=== PATIENT | female | born 1945 | race Caucasian/White ===

== ENCOUNTER 2016-11-23 17:29 | Emergency (ER) | payer MEDICARE, SELFPAY ==
--- NOTE | 2016-11-23 18:03 | EDM.PDOC ---
ED HPI Skin/Rash - General Chief Complaint: Skin Complaint Stated Complaint: FACIAL SWELLING Time Seen by Provider: 11/23/16 18:03 Source: Reports: Patient History Limitations: Reports: No limitations - History of Present Illness INITIAL COMMENTS - FREE TEXT/NARRATIVE: 71-year-old female presents to the ED with her son and [id number]. Son reports that he identified yesterday afternoon that there seemed to be some redness along the right side of his mother's nose that extended just across under her eye. He didn't think much of it and she wasn't complaining of any discomfort or H. This afternoon when they got to see her there is marked erythema and swelling of the entire right inferior aspect of her face under the eye with marked edema of the right lower eyelid and some edema of the upper eyelid. She still reports it doesn't itch or burn or hurt. Examination reveals to be very warm to palpation and it is very red. She's had no cold or sinus congestion. Recently hospitalized in [facility]. Of note she is on Coumadin.patient states she has no teeth and hasn't had for greater than 25 years. She does wear an upper denture plate. 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 (see below) - Related Data Allergies Allergy/AdvReac Type Severity Reaction Status Date / Time Sulfa (Sulfonamide Allergy Swelling Verified 05/04/16 11:45 Antibiotics) Home Meds: Ambulatory Orders Medication Instructions Recorded Confirmed Furosemide [Lasix] 60 mg PO BID 05/04/16 11/23/16 Gabapentin [Neurontin] 100 mg PO BID 05/04/16 11/23/16 Levothyroxine [Synthroid] 88 mcg PO DAILY 05/04/16 11/23/16 Metoprolol Tartrate 50 mg PO BID 05/04/16 11/23/16 Potassium Chloride 20 meq PO BID 05/04/16 11/23/16 Verepamil 180 mg PO DAILY 05/04/16 11/23/16 Warfarin Sodium [Jantoven] 5 mg PO SUTUTHSA 05/04/16 11/23/16 Budesonide/Formoterol Fumarate 2 puff INH BID 11/23/16 11/23/16 [Symbicort 160-4.5 Mcg Inhaler] Ciprofloxacin HCl [Cipro] 500 mg PO BID #20 tablet 11/23/16 Doxycycline [Vibramycin] 100 mg PO Q12HR #21 cap 11/23/16 Warfarin Sodium [Coumadin] 10 mg PO MOWEFR 11/23/16 11/23/16 Past Medical History Cardiovascular History: Reports: Afib (is on Coumadin for this.), Hypertension Respiratory History: Reports: COPD Neurological History: Reports: Neuropathy, peripheral Endocrine/Metabolic History: Reports: Hypothyroidism - Past Surgical History GI Surgical History: Reports: Appendectomy Female Surgical History: Reports: Tubal ligation Social & Family History - Tobacco Use Smoking Status *Q: Former Smoker Years of Tobacco use: 54 Packs/Tins Daily: 2 Used Tobacco, but Quit: Yes Month Tobacco Last Used: 6 months - Caffeine Use Caffeine Use: Reports: Soda Other Caffeine Use: about 6 pac daily - Recreational Drug Use Recreational Drug Use: No - Living Situation & Occupation Living situation: Reports: , with family Occupation: retired ED ROS GENERAL - Review of Systems Review Of Systems: See Below Constitutional: Denies: fever, chills, malaise, weakness, fatigue, decreased appetite, weight loss HEENT: Reports: Eye discharge (minimal.), Glasses. Denies: Eye pain, Hearing loss, Nosebleed, Nose pain, Rhinitis, Sinus problem, Throat pain, Throat swelling, Vertigo Respiratory: Reports: Cough (chronically she has COPD.) Cardiovascular: Reports: Blood pressure problem (controlled with medication), Dyspnea on exertion (chronically). Denies: Chest pain, Lightheadedness Endocrine: Reports: no symptoms GI/Abdominal: Reports: Constipation (occasionally). Denies: Abdominal pain, Anorexia, Black stool, Bloody stool : Reports: frequency, incontinence (stress and urge component) Musculoskeletal: Reports: neck pain, shoulder pain, back pain, joint pain ( underlying osteoarthritis.) Skin: Reports: no symptoms Neurological: Reports: No Symptoms Psychiatric: Reports: No symptoms Hematologic/Lymphatic: Reports: no symptoms, other Immunologic: Reports: no symptoms ED EXAM, SKIN/RASH Exam: See Below Exam Limited By: No limitations General Appearance: alert, WD/WN, no apparent distress, other (obvious redness of the right consuelo-face was marked edema of the right lower eyelid and mild edema of the upper eyelid. This does extend to the right lateral side of her nose. No evidence of infection in the dacrocystic duct. This travels across to the zygomatic process of the) Eye Exam: left eye: periorbital changes (there is marked edema of the lower eyelid as well as mild edema of the upper eyelid on the right side.), bilateral eye: PERRL Ears: normal TMs Nose: other (slight erythema of the right lateral alar part of her nose. Inflammation travels across the face to involve the soft tissues over the cheek below the eye to the zygomatic process inferiorly over the maxillary sinus. It is warm to palpation but does not hurt.) Throat/Mouth: Normal inspection, Normal lips, Normal oropharynx Head: atraumatic, normocephalic Neck: normal inspection, supple, limited range of motion. No: full range of motion, lymphadenopathy (L), lymphadenopathy (R) Respiratory/Chest: decreased breath sounds (decreased air entry to the posterior 40% of her lung lainez due to COPD.), wheezing (expiratory wheezing bilaterally.). No: lungs clear, normal breath sounds, rhonchi Cardiovascular: no edema, no gallop, no murmur, no rub, irregularly irregular ( atrial fibrillation with rate of around 101 per minute.). No: normal peripheral pulses Peripheral Pulses: 0: posterior tibial (L), posterior tibial (R), dorsalis pedis (L), dorsalis pedis (R) GI/Abdominal: normal bowel sounds (clinically has significant peripheral vascular disease disease.), soft, non tender, no organomegaly Course - Vital Signs Last Recorded V/S: Last Vital Signs Temp Pulse 101 H 11/23/16 18:53 Resp 18 11/23/16 18:53 BP 121/67 11/23/16 18:53 Pulse Ox 96 11/23/16 18:53 - Orders/Labs/Meds Meds: Medications Discontinued Medications Generic Name Dose Route Start Last Admin Trade Name Freq PRN Reason Stop Dose Admin Cephalexin 1,000 mg 11/23/16 18:41 11/23/16 18:51 Keflex PO 11/23/16 18:42 1,000 mg ONETIME ONE Administration - Radiology Interpretation Free Text/Narrative:: 71-year-old lady presents to the ED with marked erythema of the right side of her face. This is developed over the last 24 hours. She has a cellulitis of her face with the marked edema of the lower eyelid and some edema of the upper eyelid. It is painless but it is warm to palpation very erythematous. The exact nidus for the source of infection is unclear. 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 She is completely asymptomatic. Therefore lab work will not be done. I gave her to flex 1 g IV in in the ED orally. Then she'll start doxycycline 200 mg tonight and Cipro 500 mg once tonight as well. She'll then take doxycycline 100 mg twice daily for 10 days with Cipro 500 mg twice daily for 10 days. Recognizing at both of these drugs her Coumadin time. She is to have her Coumadin hard time and INR checked on Friday or next week. Departure - Departure Time of Disposition: 18:39 Disposition: Home, Self-Care 01 Condition: fair Clinical Impression: Cellulitis of face Prescriptions: Doxycycline [Vibramycin] 100 mg PO Q12HR #21 cap Ciprofloxacin HCl [Cipro] 500 mg PO BID #20 tablet Instructions: Cellulitis, Adult, [id number] Referrals: Stephanie Hyde MD [Primary Care Provider] - Forms: ED Department Discharge Additional Instructions: Evaluation in the emergency room today in regards to development of right facial rash which we call cellulitis. This means an infection has developed under the skin starting on the bridge of the nose and then traveling across the soft tissues under the right eye and over the facial cheek. This is less almost always due to staph aureus infection. In small karthik in the skin may well have been a portal of entry for the organism to set up "house" under the skin.initial treatment started in the ED today was cephalexin 1 g given orally. Need also to take Cipro 500 mg tonight and 200 mg of doxycycline when he gets prescriptions filled. Both of these medications are taken one tablet twice daily for 10 days to complete 10 days of antibiotic therapy. Expect the redness and swelling to go down and be markedly improved in 48 hours time. If not then he will need to return to the emergency room for antibiotic IV therapy. Motrin 600 mg every 6 hours if needed for pain relief.you'll need to have your Coumadin time checked on next week as both of these antibiotics can increase the Coumadin time in your blood. Just has to be made to the Coumadin dosage if needed at that time.
[2016-11-23] MEDS ORDERED: Cephalexin 500 MG Cap PO ONE (18:41)
[2016-11-23 18:54] VITALS: BP 121/67
== END 2016-11-23 18:55 | disposition home or self-care (01) ==
LOC: JD.ED 17:29
DX: L03.211 Cellulitis of face (principal); I10 Essential (primary) hypertension; J44.9 Chronic obstructive pulmonary disease, unspecified; E03.9 Hypothyroidism, unspecified; Z87.891 Personal history of nicotine dependence; Z79.899 Other long term (current) drug therapy; Z88.2 Allergy status to sulfonamides
CPT/HCPCS: 99283; A9270